=== PATIENT | male | born 1985 | race Caucasian/White ===

== ENCOUNTER 2017-08-11 18:33 | Emergency (ER) | payer MEDICAID ==
[~2017-08-11] VITALS: Ht 172.7 cm; Wt 88.0 kg
[~2017-08-11 18:33] MED LIST: AMLO10TA4 PO; ASPI-1264 PO; HYDR-565 PO; LISI-600 PO; POTA8TAB8 PO; VENL75CA61 PO; ZIPR40CA2 PO
[2017-08-11 18:40] VITALS: BP 153/93
[2017-08-11] MEDS ORDERED: morphine 4 MG/ML inj SYRINge IM ONE (19:10)
[2017-08-11] MEDS ORDERED: HYDR-569 PO (19:13)
== END 2017-08-11 20:01 | disposition home or self-care (01) ==
LOC: ER 18:34
DX: S83.91XA Sprain of unspecified site of right knee, initial encounter (principal); I10 Essential (primary) hypertension; G89.29 Other chronic pain; Z90.49 Acquired absence of other specified parts of digestive tract; Z98.890 Other specified postprocedural states; Z88.1 Allergy status to other antibiotic agents; Z79.82 Long term (current) use of aspirin; Z79.899 Other long term (current) drug therapy; Z56.0 Unemployment, unspecified; X50.0XXA Overexertion from strenuous movement or load, initial encounter; Y93.89 Activity, other specified; Y92.89 Other specified places as the place of occurrence of the external cause; Y99.8 Other external cause status
CPT/HCPCS: 29505; 73564; 96372; 99283; J2270

== ENCOUNTER 2018-01-21 23:30 | Emergency (ER) | payer MEDICAID ==
[~2018-01-21] VITALS: Ht 591.1 cm; Wt 93.0 kg
[~2018-01-21 23:30] MED LIST changes: +HYDR-569 PO
[2018-01-21 23:40] VITALS: BP 141/92
[2018-01-22] MEDS ORDERED: ketorolac trometh inj. 60 MG/2 ML VIAL IM ONE (00:15)
[2018-01-22] MEDS ORDERED: HYDROcodone/acetaminophen 10/325mg tab PO ONE (00:45)
[2018-01-22] MEDS ORDERED: HYDR-569 PO (00:45)
== END 2018-01-22 01:21 | disposition home or self-care (01) ==
LOC: ER 23:30
DX: M79.602 Pain in left arm (principal); I10 Essential (primary) hypertension; G89.29 Other chronic pain; F17.200 Nicotine dependence, unspecified, uncomplicated; Z56.0 Unemployment, unspecified; Z79.82 Long term (current) use of aspirin; Z88.1 Allergy status to other antibiotic agents
CPT/HCPCS: 73090; 96372; 99284; A4565; J1885

== ENCOUNTER 2018-07-21 10:09 | Emergency (ER) | payer MEDICAID ==
[~2018-07-21] VITALS: Ht 172.7 cm; Wt 89.0 kg
[~2018-07-21 10:09] MED LIST changes: +HYDR-4353 PO; +HYDR-4383 PO; -HYDR-565 PO; -HYDR-569 PO
[2018-07-21 10:15] VITALS: BP 156/113
[2018-07-21] MEDS ORDERED: BUPIVAcaine 0.5% W/EPI /PF 30ml vial IJ ONE (11:20)
[2018-07-21] MEDS ORDERED: PENI500T2 PO (11:53)
[2018-07-21] MEDS ORDERED: IBUP-1985 PO (11:53)
[2018-07-21] MEDS ORDERED: HYDROcodone/acetaminophen 10/325mg tab PO ONE (12:05)
[2018-07-21] MEDS ORDERED: HYDR-3965 PO (12:16)
== END 2018-07-21 12:33 | disposition home or self-care (01) ==
LOC: ER 10:10
DX: K08.89 Other specified disorders of teeth and supporting structures (principal); I10 Essential (primary) hypertension; G89.29 Other chronic pain; Z90.49 Acquired absence of other specified parts of digestive tract; Z98.890 Other specified postprocedural states; Z88.1 Allergy status to other antibiotic agents; Z79.82 Long term (current) use of aspirin; Z79.899 Other long term (current) drug therapy; Z56.0 Unemployment, unspecified
CPT/HCPCS: 64400; 99284

== ENCOUNTER 2020-05-21 19:25 | Emergency (ER) | payer MEDICAID ==
[~2020-05-21] VITALS: Ht 175.3 cm; Wt 84.1 kg
[~2020-05-21 19:25] MED LIST changes: +IBUP-1985 PO
[2020-05-21] MEDS ORDERED: ketorolac trometh. 30mg/ml inj. IV ONE (19:50)
[2020-05-21] MEDS ORDERED: diphenhydrAMINE 50 mg/ml inj IV ONE (19:50)
[2020-05-21] MEDS ORDERED: LORazepam 2 mg/ml vial IV ONE (21:10)
--- NOTE | 2020-05-21 21:48 | NUR ---
During triage, Dr. Gunn at bedside, denies need for more labs
[2020-05-21 22:20] VITALS: BP 131/86
== END 2020-05-21 22:24 | disposition home or self-care (01) ==
LOC: ER 19:26
DX: R51.9 Headache, unspecified (principal); R07.89 Other chest pain; I10 Essential (primary) hypertension; G89.29 Other chronic pain; Z87.440 Personal history of urinary (tract) infections; F17.200 Nicotine dependence, unspecified, uncomplicated; Z90.49 Acquired absence of other specified parts of digestive tract; Z98.890 Other specified postprocedural states; Z88.1 Allergy status to other antibiotic agents; Z79.82 Long term (current) use of aspirin; Z79.899 Other long term (current) drug therapy
CPT/HCPCS: 71045; 93005; 96374; 96375; 99284; J1200; J1885; J2060

== ENCOUNTER 2021-06-15 15:33 | Emergency (ER) | payer MEDICAID ==
[~2021-06-15] VITALS: Ht 172.7 cm; Wt 86.3 kg
[~2021-06-15 15:33] MED LIST changes: -LISI-600 PO; +LISI20TA28 PO
[2021-06-15] MEDS ORDERED: ketorolac trometh inj. 60 MG/2 ML VIAL IM ONE (17:55)
[2021-06-15] MEDS ORDERED: HYDR-3965 PO (17:56)
[2021-06-15 18:45] VITALS: BP 127/89
== END 2021-06-15 18:49 | disposition home or self-care (01) ==
LOC: ER 15:34
DX: S90.32XA Contusion of left foot, initial encounter (principal); G89.29 Other chronic pain; I10 Essential (primary) hypertension; Z87.442 Personal history of urinary calculi; Z88.1 Allergy status to other antibiotic agents; Z79.899 Other long term (current) drug therapy; W20.8XXA Other cause of strike by thrown, projected or falling object, initial encounter; Y93.89 Activity, other specified; Y92.89 Other specified places as the place of occurrence of the external cause; Y99.8 Other external cause status
CPT/HCPCS: 73630; 96372; 99283; J1885

== ENCOUNTER 2023-02-28 19:54 | Emergency (ER) | payer MEDICAID ==
[~2023-02-28] VITALS: Ht 172.7 cm; Wt 83.9 kg
[2023-02-28 20:01] VITALS: BP 143/104; PULSE 85; TEMP 98.6; O2SAT 100
[2023-02-28] MEDS ORDERED: ketorolac trometh inj. 60 MG/2 ML VIAL IM ONE ×2 (21:10)
[2023-02-28 21:16] VITALS: RESP 16
[2023-02-28] MEDS ORDERED: NAPR-56 PO (21:55)
== END 2023-02-28 22:28 | disposition home or self-care (01) ==
LOC: ER 19:55
DX: S62.101A Fracture of unspecified carpal bone, right wrist, initial encounter for closed fracture (principal); X58.XXXA Exposure to other specified factors, initial encounter; Y93.89 Activity, other specified; Y92.89 Other specified places as the place of occurrence of the external cause; Y99.8 Other external cause status
CPT/HCPCS: 29125; 73130; 96372; 99283; J1885; A6449